=== PATIENT | male | born 1975 | race Caucasian/White ===

== ENCOUNTER 2018-02-19 21:53 | Emergency (ER) | payer SELFPAY ==
[~2018-02-19] VITALS: Ht 180.3 cm; Wt 84.1 kg
[~2018-02-19 21:53] MED LIST: MULTI-DAY VITA1 EACH PO; PERCOCET 325 MG1 TA2 PO
[2018-02-19 22:00] VITALS: BP 123/89
[2018-02-20] MEDS ORDERED: NORCO 325 MG-51 TA1 PO (00:42)
[2018-02-20] MEDS ORDERED: CEPHALEXIN500 M1 PO (00:42)
== END 2018-02-20 00:45 | disposition home or self-care (01) ==
LOC: ED 21:53
DX: S67.193A Crushing injury of left middle finger, initial encounter (principal); S61.213A Laceration without foreign body of left middle finger without damage to nail, initial encounter; W23.0XXA Caught, crushed, jammed, or pinched between moving objects, initial encounter; Y92.009 Unspecified place in unspecified non-institutional (private) residence as the place of occurrence of the external cause; F10.120 Alcohol abuse with intoxication, uncomplicated
CPT/HCPCS: J1885

== ENCOUNTER 2020-03-23 18:38 | Emergency (ER) | payer SELFPAY ==
[~2020-03-23] VITALS: Ht 180.3 cm; Wt 84.1 kg
[~2020-03-23 18:38] MED LIST changes: +CEPHALEXIN500 M1 PO; +NORCO 325 MG-51 TA1 PO
[2020-03-23] MEDS ORDERED: PEPCID AC20 M2 PO (19:19)
[2020-03-23] MEDS ORDERED: NORCO 325 MG-51 TA1 PO (20:00)
[2020-03-23] MEDS ORDERED: CLEOCIN HCL150 M1 PO (20:00)
[2020-03-23 20:22] VITALS: BP 149/98
== END 2020-03-23 20:22 | disposition home or self-care (01) ==
LOC: ED 18:38
DX: L03.116 Cellulitis of left lower limb (principal); K21.9 Gastro-esophageal reflux disease without esophagitis; F17.200 Nicotine dependence, unspecified, uncomplicated; Z79.899 Other long term (current) drug therapy

== ENCOUNTER 2021-11-22 17:52 | Emergency (ER) | payer SELFPAY ==
[~2021-11-22] VITALS: Ht 177.8 cm; Wt 84.1 kg
[~2021-11-22 17:52] MED LIST changes: +CLEOCIN HCL150 M1 PO; +PEPCID AC20 M2 PO
[2021-11-22 19:12] LABS: BASO # 0.09 K/mm3 (0.02-0.10); EOS # 0.07 K/mm3 (0.04-0.40); HEMATOCRIT 36.9 % (42.0-52.0); HEMOGLOBIN 12.2 g/dL (13.5-18.0); LYMPH# 1.14 K/mm3 (1.50-4.00); MEAN CELL VOLUME 99 fl (78-100); MEAN CORPUSCULAR HEMOGLOBIN 33 pg (27-31); MEAN CORPUSCULAR HGB CONC 33 g/dL (33-37); MONO # 0.47 K/mm3 (0.20-0.80); NEU # 1.76 K/mm3 (1.40-6.50); PLATELET COUNT 188 K/mm3 (130-400); RED BLOOD COUNT 3.72 M/mm3 (4.20-5.60); RED CELL DISTRIBUTION WIDTH 16.2 % (11.5-14.5); WHITE BLOOD COUNT 3.6 K/mm3 (4.8-10.8)
[2021-11-22 19:25] LABS: ALBUMIN 4.2 g/dL (3.5-5.0); POTASSIUM 3.3 mmol/L (3.5-5.1); SODIUM 141 mmol/L (136-145)
[2021-11-22 19:27] LABS: CALCIUM 8.8 mg/dL (8.3-10.5)
[2021-11-22 19:28] LABS: GLUCOSE 130 mg/dL (75-110); TOTAL PROTEIN 7.1 g/dL (6.4-8.3)
[2021-11-22 19:29] LABS: CARBON DIOXIDE 24 mmol/L (22-29)
[2021-11-22 19:30] LABS: TOTAL BILIRUBIN 0.5 mg/dL (0.2-1.2)
[2021-11-22 19:31] LABS: ALCOHOL IN-HOUSE 327 mg/dL (<10)
[2021-11-22 19:33] LABS: AST-SGOT 87 U/L (5-34)
[2021-11-22 19:35] LABS: ALT/SGPT 49 U/L (0-55)
[2021-11-22 19:36] LABS: ACETAMINOPHEN < 1 ug/mL
[2021-11-23] MEDS ORDERED: B-1100 M1 PO (08:13)
[2021-11-23 08:20] VITALS: BP 146/102
== END 2021-11-23 08:25 | disposition home or self-care (01) ==
LOC: ED 17:52
PROVIDERS: Family Medicine
DX: F10.139 Alcohol abuse with withdrawal, unspecified (principal); F43.10 Post-traumatic stress disorder, unspecified; I10 Essential (primary) hypertension; F17.200 Nicotine dependence, unspecified, uncomplicated; Z28.310 Unvaccinated for COVID-19

== ENCOUNTER 2023-08-11 13:12 | Emergency (ER) | payer BC ==
[~2023-08-11] VITALS: Ht 180.3 cm; Wt 82.5 kg
[~2023-08-11 13:12] MED LIST changes: +B-1100 M1 PO
[2023-08-11] MEDS ORDERED: NS 1,000 ML IV SCH (13:45)
[2023-08-11] MEDS ORDERED: Iohexol 350 - 100 ML VIAL IV ONE (13:48)
[2023-08-11 14:11] LABS: BASO # 0.06 K/mm3 (0.02-0.10); EOS # 0.01 K/mm3 (0.04-0.40); EOS % 0.2 % (0.0-4.0); HEMATOCRIT 21.8 % (42.0-52.0); LYMPH# 0.85 K/mm3 (1.50-4.00); MEAN CELL VOLUME 67 fl (78-100); MEAN CORPUSCULAR HEMOGLOBIN 18 pg (27-31); MEAN CORPUSCULAR HGB CONC 28 g/dL (33-37); MEAN PLATELET VOLUME 9.6 fl (7.4-10.4); MONO # 0.72 K/mm3 (0.20-0.80); NEU # 4.08 K/mm3 (1.40-6.50); PLATELET COUNT 285 K/mm3 (130-400); RED BLOOD COUNT 3.27 M/mm3 (4.20-5.60); RED CELL DISTRIBUTION WIDTH 23.3 % (11.5-14.5); WHITE BLOOD COUNT 5.8 K/mm3 (4.8-10.8)
[2023-08-11 14:19] LABS: ALBUMIN 3.7 g/dL (3.5-5.0)
[2023-08-11 14:20] LABS: SODIUM 139 mmol/L (136-145)
[2023-08-11 14:21] LABS: CALCIUM 9.1 mg/dL (8.3-10.5)
[2023-08-11 14:22] LABS: GLUCOSE 113 mg/dL (75-110); TOTAL PROTEIN 6.7 g/dL (6.4-8.3)
[2023-08-11 14:23] LABS: CARBON DIOXIDE 23 mmol/L (22-29)
[2023-08-11 14:24] LABS: TOTAL BILIRUBIN 0.5 mg/dL (0.2-1.2)
[2023-08-11 14:25] LABS: ALCOHOL IN-HOUSE 48 mg/dL (<10)
[2023-08-11 14:27] LABS: AST-SGOT 73 U/L (5-34)
[2023-08-11 14:29] LABS: ALT/SGPT 44 U/L (0-55)
[2023-08-11] MEDS ORDERED: Potassium Chloride 100 ML IV SCH (14:30)
[2023-08-11 14:34] LABS: TROPONIN-I < 0.030 ng/mL (0.00-0.033)
[2023-08-11 14:34] LABS: PROTHROMBIN TIME 10.5 SECONDS (9.0-12.0)
[2023-08-11 14:52] LABS: MAGNESIUM 1.35 mg/dL (1.60-2.60)
[2023-08-11] MEDS ORDERED: NIFEdipine 10 MG CAP PO ONE (16:15)
[2023-08-11] MEDS ORDERED: Dextrose/Magnesium Sulfate 100 ML IV ONE (16:30)
[2023-08-11] MEDS ORDERED: Mag/Al Hydrox/Simeth Susp 30 ML CUP PO ONE (16:30)
[2023-08-11] MEDS ORDERED: LORazepam 2 MG/ML VIAL IV ONE (16:30)
[2023-08-11] MEDS ORDERED: Lidocaine 2% Viscous 15 ML UNIT DOSE CUP MM ONE (16:30)
[2023-08-11] MEDS ORDERED: LORazepam 0.5 MG TABLET PO ONE (16:45)
[2023-08-11 18:15] VITALS: BP 130/78
[2023-08-11 18:45] LABS: URINE APPEARANCE CLEAR (CLEAR); URINE BILIRUBIN NEGATIVE (NEGATIVE); URINE BLOOD NEGATIVE (NEGATIVE); URINE COLOR YELLOW (YELLOW); URINE GLUCOSE NEGATIVE (NEGATIVE); URINE KETONE NEGATIVE (NEGATIVE); URINE LEUKOCYTE ESTERASE NEGATIVE (NEGATIVE); URINE NITRATE NEGATIVE (NEGATIVE); URINE PROTEIN(semi-quant) 1+ (NEGATIVE)
== END 2023-08-11 18:25 | disposition short-term general hospital (02) ==
LOC: ED 13:12
PROVIDERS: Physician Assistant
DX: S02.2XXA Fracture of nasal bones, initial encounter for closed fracture (principal); S02.832A Fracture of medial orbital wall, left side, initial encounter for closed fracture; S00.83XA Contusion of other part of head, initial encounter; F10.10 Alcohol abuse, uncomplicated; E87.6 Hypokalemia; D64.9 Anemia, unspecified; R55 Syncope and collapse; E83.42 Hypomagnesemia; F17.210 Nicotine dependence, cigarettes, uncomplicated; W18.30XA Fall on same level, unspecified, initial encounter; W22.09XA Striking against other stationary object, initial encounter; Y92.512 Supermarket, store or market as the place of occurrence of the external cause
CPT/HCPCS: J3475; J7030; Q9967

== ENCOUNTER → 2023-08-28 | Outpatient (CLI) | payer BC ==
[~2023-08-28] MED LIST changes: +ASPIRIN 81M81 MG/TA2 PO; +CLOPIDOGREL PO; +FOLIC ACID1 MG PO; +LIPITOR 40MG TA40 MG PO; +PROTONIX TR40 M1 PO; +VITAMIN B PO
== END ==
LOC: RAD 13:24
DX: S12.591D Other nondisplaced fracture of sixth cervical vertebra, subsequent encounter for fracture with routine healing (principal); X58.XXXD Exposure to other specified factors, subsequent encounter

== ENCOUNTER 2023-09-07 08:00 | Outpatient (RCR) | payer BC ==
[~2023-09-07 08:00] MED LIST changes: -ASPIRIN 81M81 MG/TA2 PO; -CLOPIDOGREL PO; -FOLIC ACID1 MG PO; -LIPITOR 40MG TA40 MG PO; -PROTONIX TR40 M1 PO; -VITAMIN B PO
[2023-09-17] MEDS ORDERED: LIPITOR 40MG TA40 MG PO (08:11)
[2023-09-17] MEDS ORDERED: FOLIC ACID1 MG PO (08:12)
[2023-09-17] MEDS ORDERED: CLOPIDOGREL PO (08:12)
[2023-09-17] MEDS ORDERED: ASPIRIN 81M81 MG/TA2 PO (08:12)
[2023-09-17] MEDS ORDERED: PROTONIX TR40 M1 PO (08:13)
[2023-09-17] MEDS ORDERED: VITAMIN B PO (08:13)
== END 2023-10-04 ==
LOC: OT
DX: I69.359 Hemiplegia and hemiparesis following cerebral infarction affecting unspecified side (principal)